=== PATIENT | female | born 1985 | race Caucasian/White ===

== ENCOUNTER 2020-07-19 07:25 | Day surgery (SDC) | payer BC, SELFPAY ==
--- NOTE | 2020-07-18 10:57 | HP.PCM_ITS ---
- Problem List (1) Menorrhagia Status: Acute (2) PCB (post coital bleeding) Status: Acute (3) Uterine polyp Status: Acute History and Physical Date of Admission: 07/19/20 DATE OF SERVICE: July 16, 2020 ? PROBLEM:??Post coital bleeding, menorrhagia ? DIAGNOSIS:?Post coital bleeding, menorrhagia ? SUBJECTIVE:?Pt is here for a pre op exam for hysteroscopy polypectomy. She has complaints of?pelvic pain for a few months. Worse over last month. She describes the pain as at times severe. Other times it feels like cramping. No fevers, chills, N/V, change in appetite, urinary symptoms, change in BM's, vaginal discharge, STD concerns. She had a small likely hemorrhagic cyst on a recent ultrasound.? ? PAST SURGICAL HISTORY:? PAST SURGICAL HISTORY PAST SURGICAL HISTORY Procedure Laterality Date ? NONE ? ? ? PAST MEDICAL HISTORY:? PAST MEDICAL HISTORY PAST MEDICAL HISTORY Diagnosis Date ? Anemia ? ? Septate uterus ? ? SOCIAL HISTORY:? SOCIAL HISTORY Social History ? Tobacco Use ? Smoking status: Never Smoker ? Smokeless tobacco: Never Used Substance Use Topics ? Alcohol use: Yes ? ? Comment: occasional ? Drug use: Never ? [employer] HISTORY: Pelvic US: Indication Abnormal uterine bleeding Impression Normal appearing retroverted uterus that measures 90 mm x 60 mm x 71 mm. Two Small ?fibroids, largest measures 2cm in greatest dimension- both are intramural. The central endometrial complex measures 11.6 mm in combined thickness. An endometrial polyp was seen at the fundal aspect with feeding vessels present. Right ovary with small complex ovarian cyst measuring 2.2cm in greatest dimension- ?no internal vascular flow, no solid components. Left ovary not seen. No adnexal masses were observed. There is moderate free fluid visualized in the peritoneal cavity. Recommendations consider hysteroscopic evaluation and removal of endometrial polyp ? ? ALLERGIES ALLERGIES No Known Allergies ? Current Outpatient Medications on File Prior to Visit Medication Sig ? MULTIVITAMIN ORAL Take by mouth. No current facility-administered medications on file prior to visit. ? OBJECTIVE: ? VITALS:? BP 106/70 ? Pulse 90 ? Resp 16 ? Ht 6' 1 (1.854 m) ? Wt (!) 323 lb 6.4 oz (146.7 kg) ? LMP 07/02/2020 ? BMI 42.67 kg/m? ? HEENT: ?Normocephalic, atraumatic, Mucus membranes moist without lesions. ? NECK: ???Soft and Supple. ?No adenopathy , thyromegaly or bruits. ? SKIN: No lesions. ? CHEST: Clear to auscultation. ?No wheezes or rales. ?Good air exchange. ? HEART: Regular rate and rhythm ?No S3 or S4. ?No gallops or rubs. ? BACK: Nontender with no CVA tenderness. ? ABDOMEN: Soft, non-tender, non-distended, no masses, no hepatosplenomegaly. ? LOWER EXTREMITIES: There was no pitting edema, no palpable cords and no skin changes. ? ? ? ASSESSMENT:?Menorrhagia, post coital bleeding, polyp on ultrasound ? PLAN:?Discussed hysteroscopy, polypectomy, possible D&C. Discussed that there may not be a polyp present at time of surgery. Discussed option for progesterone IUD for menorrhagia. Reviewed that the IUD could be placed at the time of surgery, but given her pelvic pain and cysts unsure if she would like to proceed. At this time she does not desire an IUD but will consider. Discussed that the polypectomy may not improve her bleeding.?The rationale for the proposed surgery was discussed in addition to risks, benefits, and alternatives. ?General pre- and post-operative care was reviewed. ?Questions were answered. ?After discussion, the patient indicated a desire to proceed with the planned surgery. ? The patient today also reports severe, worsening pelvic pain. Reviewed reasons to go to the ER. She just recently had a pelvic US - discussed likely small hemorrhagic cyst present. Discussed pain unlikely to be from small fibroids or polyp. Will get repeat pelvic US this week prior to proceeding with surgery for surgical planning given her worsening pain. ? The patient also brings with her today paperwork for time off from work. She says she has not been going to work because of the pelvic pain and fatigue. Discussed with her no medical indication to be off of work at this time, but will discuss with provider who she saw her last. Discussed time off with surgery. ? Karena Tubbs,?DO
[2020-07-19] VITALS (7 sets, daily range): BP systolic 119–137; BP diastolic 67–100; PULSE 73–98; RESP 16–18; TEMP 36.3–36.8; O2SAT 98–100; BMI 42.5
[2020-07-19 08:01] LABS: Internal QC Validated? YES +Cl - CLEAR BKGD; Pregnancy, Urine Negative Negative
[2020-07-19] MEDS: Lactated Ringers 1,000 ML 100 ML IV (08:09)
--- NOTE | 2020-07-19 09:00 | EMB_PTH ---
PATIENT: CORINNE ROJAS LOC: [facility] [place] U#:[id number] AGE/SX: 35/F ROOM: RE07/19/[address]: Dr. Karena Tubbs DO : 1985 BED: DIS: 07/19/2020 SPEC #: [id number] RECD: 07/19/20 10:56 STATUS: RADHA MARTIN #: [id number] MONALISA: 07/19/20 09:[address]: Karena Tubbs DEPT: SURGICAL PATHOLOGY RECD BY: Erin Agustin ENTERED: 07/19/20 13:02 SP TYPE: ENDOM BX/C DOMINGUEZ DR: Dr. Mike Ralph MD Tissues: Endometrium, NOS Procedures: Surgery Specimen Level IV HEADER OPERATION: Hysteroscopy, polypectomy, Symphion PRE-OP DIAGNOSIS: Dysfunctional uterine bleeding, polyp TISSUE SUBMITTED: Endometrial curettings and polyp MICROSCOPIC DIAGNOSIS Endometrial curetting and polyp: Polypoid fragments of transitional endometrium with mild disorder. Fragments of benign endocervical polyp. AM:lilli 07/20/2020 MICROSCOPIC DESCRIPTION Slides are reviewed. GROSS DESCRIPTION Received in fixative is one container labeled with the patient's name and designated endometrial curettings and polyp. The specimen consists of multiple irregular fragments of light to dark yeh soft tissue that in aggregate measure 5 x 3 x 0.2 cm. The specimen is totally submitted in two cassettes. / AM:lilli 07/19/20 TC:5 CPT: 98326
[2020-07-19] MEDS: Lidocaine 1% (20 ml mdv) 20 ML Vial (09:13)
--- NOTE | 2020-07-19 09:35 | PCM.DC.D&C ---
Discharge Diet: No Restrictions Discharge Activity: May Drive - 24 hours after surgery, May Shower May resume sexual activity in: 1 week Weight Bearing Status: Full weight bearing Lifting Restrictions: No restrictions Call your doctor if you observe: Fever of 101 or Higher, Inability to urinate, Inability to have a bowel movement, Using more than one pad per hour, Shortness of breath, Dizziness, Fainting spells, Swelling in the ankles, Chest pain, Increased palpitations (irregular heartbeat), Calf discomfort, Uncontrolled pain Allergies/Adverse Reactions: Allergies No Known Allergies Allergy (Verified 07/19/20 07:45) Medications to take at Discharge NK 07/12/20 Orders to be completed after discharge: ,Urine Time Frame: 07/19/20, Facility: [facility], Location: Laboratory Primary Care Physician: Mike Ralph MD [Primary Care Provider] - Test Results: Test results from this visit will be discussed in further detail at your follow-up appointment, if applicable. Please Follow Up With: Karena Tubbs DO When: 1-2 weeks
--- NOTE | 2020-07-19 09:36 | OP.PCM_ITS ---
Problem List (1) Menorrhagia Status: Acute (2) PCB (post coital bleeding) Status: Acute (3) Uterine polyp Status: Acute Report of Operation Date of Procedure: 07/19/20 Pre-Operative Diagnosis: DUB, post coital bleeding, uterine polyp Post-Operative Diagnosis: As above Surgery/Procedure Performed:: Hysteroscopy, polypectomy, D&C Description of Surgical Findings:: Multiple polyps noted within the uterine cavity. 4 polyps were noted within the cavity. Once the polyps were removed the uterine cavity was normal-appearing. Bilateral tubal ostia were visualized. barrel washer: None Type of Anesthesia:: Local, MAC Special Medications: None Specimen's removed: Polyps and endometrial curettings Drains: None Estimated Blood Loss (mL): < 50 cc Fluids Replaced: 750 cc fluid deficit Description of Procedure: Patient was taken to the operating room where MAC anesthesia was found to be adequate. She was prepped and draped in the dorsal lithotomy position using yellowfin stirrups. A weighted speculum was placed in the vagina to expose the cervix. Local was used to perform a paracervical block. A single-tooth tenaculum was placed on the anterior lip of the cervix. The uterus sounded to 10 cm. The cervix was serially dilated to accommodate the Symphion hysteroscope. Normal saline as distention media was used to distend the uterine cavity. Four uterine polyps were noted, and polyps were resected using the Symphion resection device. Once the polyps were resected and removed, the uterine cavity was otherwise normal-appearing. Bilateral tubal ostia were visualized. The hysteroscope was slowly removed through the cervical canal and the cervix was noted to be normal-appearing. The hysteroscope was removed. Sharp curettage was performed for endometrial curettings. The polyps and endometrial curettings were sent to pathology for review. All instruments were removed from the vagina. Bleeding was hemostatic. Vaginal sweep was performed. Instrument and sponge counts were correct. The patient was taken to recovery in stable condition. Grafts/Implants Used: None - Complications None - Admit VTE Documentation VTE Present on Admission: No VTE Mechan Device Prophylaxis: SCD's VTE Pharm Prophylaxis ordered?: No
== END 2020-07-19 10:37 | disposition home or self-care (01) ==
LOC: SDC 07:26 → AC 07:26
PROVIDERS: PCP Family Medicine; Referring Provider Obstetrics & Gynecology; Visit Provider Obstetrics & Gynecology
PROC: 0UB98ZZ Excision of Uterus, Via Natural or Artificial Opening Endoscopic (ICD-10-PCS; CPT 58558; principal; 2020-07-19 08:45)
DX: N84.1 Polyp of cervix uteri (principal); N93.8 Other specified abnormal uterine and vaginal bleeding; Z20.828 Contact with and (suspected) exposure to other viral communicable diseases; D25.1 Intramural leiomyoma of uterus; N85.4 Malposition of uterus; N83.201 Unspecified ovarian cyst, right side
CPT/HCPCS: 58558; 81025; 87426; 88305; C9803; J7120; J2405

== ENCOUNTER → 2020-11-08 16:48 | Outpatient (CLI) | payer OTHER, SELFPAY ==
[2020-07-19 07:47] VITALS: BMI 42.5
[2020-11-08 18:06] LABS: Anion Gap 6 (5-15); BUN 16 mg/dL (7-18); BUN/Creat Ratio 22.3 RATIO (10-20); Calcium,Total 9.4 mg/dL (8.5-10.1); Chloride 105 mmol/L (98-107); Creatinine, Serum 0.72 mg/dL (0.55-1.02); EST Glomerular Filtration Rate 98 mL/min (>60); Est Glom Filt Rate - Afr Amer 119 mL/min (>60); Follicle Stimulating Hormone 4.9 mIU/mL; Glucose 92 mg/dL (74-106); Luteinizing Hormone 6.5 mIU/mL; Potassium 4.2 mmol/L (3.5-5.1); Sodium Level 137 mmol/L (136-145); Thyroid Stim Hormone (TSH) 1.19 uIU/mL (0.358-3.74)
[2020-11-16 08:30] LABS: Estrogen, Total, Serum 101 pg/mL (.)
== END ==
PROVIDERS: PCP Family Medicine; Referring Provider Family Medicine; Visit Provider Family Medicine
DX: N94.6 Dysmenorrhea, unspecified (principal)
CPT/HCPCS: 36415; 80048; 82672; 83001; 83002; 84403; 84443

== ENCOUNTER 2023-12-18 16:10 | Emergency (ER) | payer OTHER, SELFPAY ==
[2023-12-18 16:11] VITALS: BP 175/108; PULSE 79; RESP 18; TEMP 36.4; O2SAT 99; BMI 44.4
--- NOTE | 2023-12-18 16:52 | US_ITS ---
STUDY: ULTRASOUND TRANSVAGINAL CLINICAL: Female, 38 years old. Vaginal bleeding TECHNIQUE: Transvaginal COMPARISON: None. FINDINGS: Normal uterine size measuring 9.1 x 6.9 x 4.9 cm in maximal craniocaudal dimension. There are fibroid measuring 2.3 x 2.9 x 2.3 cm, 2.3 x 2.3 x 2.3 cm and 2.7 x 2.3 x 2.3 cm Normal endometrial thickness measuring 8.3 mm. There are no endometrial masses, and there is no fluid in the endometrial cavity. Normal uterine cervix. Normal right ovary, measuring 3.8 x 2.2 x 1.7 cm. There are multiple follicles without a dominant cyst. Normal left ovary is not visualized. There is no adnexal mass There is no free fluid in the pelvis. US/Transvaginal Non- IMPRESSION: Multiple intrauterine fibroids. Electronically Signed: Obdulio Hall MD at 19:23 EDT ,
--- NOTE | 2023-12-18 17:24 | EDS_ITS ---
HPI <KENY Tesfaye - Last Filed: 12/18/23 20:33> HPI - Female History of Present Illness Chief Complaint: Vag Bleeding Narrative Narrative: Patient a 38-year-old female with no significant medical history who presents to the emergency department by referral from the [facility] [place] office. Per the practitioner there, the patient has been having significant bleeding for the last 6 months. Talking with the patient, this has been a lot longer however more severe over the last 6 months. Patient has 2 menses per month, with heavy bleeding and clots expelled. Patient denies ever being . Patient denies any specific pain. She states that over the last couple days has been more dizzy, lightheaded when she stands up. Patient dates she feels excessively tired. PFSH <KENY Tesfaye - Last Filed: 12/18/23 20:33> PFSH Home Medications ?Medication ?Instructions ?Recorded ?Last Taken ?Type acetaminophen 325 mg tablet 325 mg PO ONCE PRN 12/18/23 Unknown History (Tylenol) ibuprofen 200 mg tablet 200 mg PO Q6H PRN 12/18/23 Unknown History Allergy/AdvReac Type Severity Reaction Status Date / Time No Known Allergies Allergy Verified 12/18/23 16:12 Family History Mother Neuropathy Fibromyalgia Hypoglycemia Brother Blood clot in leg Other Heart disease Surgical History H/O cervical polypectomy Social History adopted: No household members: spouse current occupational status: employed current occupation: [employer] pets and animals: Yes history of recent travel: No sexually active: Yes Smoking Status: Never smoker alcohol intake: current details: holidays substance use type: does not use caffeine: Yes seatbelt use: always do you feel safe at home: Yes additional social history: Spouse - Dustin works at a [employer] company ROS <KENY Tesfaye - Last Filed: 12/18/23 20:33> ROS ED ROS Narrative Constitutional: Negative for fever, chills, weight loss, weakness Eyes: Negative for vision loss, vision change, double vision ENT: Negative for any sore throat, ear pain, congestion Cardiovascular: Negative for any chest pain, tightness. Positive palpitations Respiratory: Negative for any cough, sputum production, hemoptysis, dyspnea, dyspnea on exertion, orthopnea Gastrointestinal: Negative for any abdominal pain, nausea, vomiting, diarrhea, constipation, blood in stool, blood in vomit : Negative for any urinary frequency, dysuria, retention, blood in urine Muscle skeletal: Negative for any neck pain, back pain Neurological: Negative for any headache. Positive for near syncope, feeling of dizziness which he describes as lightheadedness Psychiatric: Negative for any depression, anxiety, stress, suicidal ideation, homicidal ideation Hematologic: Negative for any excessive bruising, easy bleeding EXAM <Mike Gilliam NP-C - Last Filed: 12/18/23 20:33> Physical Exam Narrative Exam Narrative: Vital signs reviewed. Patient appears slightly flushed, no evidence of any significant paleness. HEET: Head normocephalic atraumatic, TMs clear bilaterally. Posterior pharynx is clear, moist mucous membranes. Nares clear bilaterally. Negative for any pale conjunctiva Neck: Supple with no lymphadenopathy or tenderness. No signs of meningismus. Cardiac: Regular rate and rhythm no murmurs gallops or rubs, equal peripheral pulses bilaterally. Respiratory: Lungs clear to auscultation bilaterally. No chest tenderness. Abdomen: Soft, nontender, nondistended. No abdominal bruit or pulsatile masses. No hepatosplenomegaly Extremities: No peripheral edema, no signs of gross trauma or deformity. Active full range of motion of all extremities. Neuro: Cranial nerves II through XII intact, no focal neurological deficits. Skin: Clean dry and intact with no rash, purpura, petechiae, vesicles or pustules. Backs/flank: No CVA tenderness, no midline spinal tenderness, no deformity. Psych: Normal mood and affect. No SI, HI or acute psychosis. Const Vital Signs: 12/18/23 16:11 12/18/23 18:17 12/18/23 20:00 Temperature 97.6 F L Temperature Source Temporal Pulse Rate 79 84 Pulse Rate [Lying] 82 Pulse Rate [Sitting (for 1 minute prior to obtaining)] 85 Pulse Rate [Standing (for 1 minute prior to obtaining)] 83 Respiratory Rate 18 17 Blood Pressure 175/108 H 159/100 H Blood Pressure [Lying] 164/112 H Blood Pressure [Sitting (for 1 minute prior to obtaining)] 183/112 H Blood Pressure [Standing (for 1 minute prior to obtaining)] 206/109 H Blood Pressure Mean 130 119 Blood Pressure Mean [Lying] 129 Blood Pressure Mean [Sitting (for 1 minute prior to obtaining)] 135 Blood Pressure Mean [Standing (for 1 minute prior to obtaining)] 141 Pulse Ox 99 98 Oxygen Delivery Method Room Air Room Air Positive well nourished, well developed and obese General Appearance ED: well developed Nutritional Appearance: obese <Dr. Bryan Phan DO - Last Filed: 12/18/23 20:30> Physical Exam Const Vital Signs: 12/18/23 16:11 12/18/23 18:17 12/18/23 20:00 Temperature 97.6 F L Temperature Source Temporal Pulse Rate 79 84 Pulse Rate [Lying] 82 Pulse Rate [Sitting (for 1 minute prior to obtaining)] 85 Pulse Rate [Standing (for 1 minute prior to obtaining)] 83 Respiratory Rate 18 17 Blood Pressure 175/108 H 159/100 H Blood Pressure [Lying] 164/112 H Blood Pressure [Sitting (for 1 minute prior to obtaining)] 183/112 H Blood Pressure [Standing (for 1 minute prior to obtaining)] 206/109 H Blood Pressure Mean 130 119 Blood Pressure Mean [Lying] 129 Blood Pressure Mean [Sitting (for 1 minute prior to obtaining)] 135 Blood Pressure Mean [Standing (for 1 minute prior to obtaining)] 141 Pulse Ox 99 98 Oxygen Delivery Method Room Air Room Air MDM <KENY Tesfaye - Last Filed: 12/18/23 20:33> [facility] Lab Data Labs: Laboratory Results - last 24 hr 12/18/23 12/18/23 17:40 20:00 WBC 7.8 RBC 4.18 L Hgb 10.2 L Hct 33.1 L MCV 79.2 L MCH 24.4 L MCHC 30.8 L RDW Std Deviation 42.2 RDW Coeff of Duke 14.7 H Plt Count 360 MPV 9.3 Immature Gran % (Auto) 0.500 Neut % (Auto) 61.6 Lymph % (Auto) 28.2 Archer % (Auto) 6.2 Eos % (Auto) 3.0 Baso % (Auto) 0.5 Absolute Neuts (auto) 4.8 Absolute Lymphs (auto) 2.20 Nucleated RBC % 0 Sodium 138 Potassium 4.1 Chloride 106 Carbon Dioxide 26.0 Anion Gap 6 BUN 15 Creatinine 0.83 Estim Creat Clear Calc 154.19 Est GFR (MDRD) Af Amer 98 Est GFR (MDRD) Non-Af 81 BUN/Creatinine Ratio 18.0 Glucose 96 Calcium 9.0 Serum , Qual NEGATIVE Urine Color Yellow Urine Clarity Sl. Cloudy Urine pH 6.0 Ur Specific [place] 1.015 Urine Protein Negative Urine Glucose (UA) Normal Urine Ketones Negative Urine Occult Blood 250 H Urine Nitrite Negative Urine Bilirubin Negative Urine Urobilinogen Normal Ur Leukocyte Esterase 25 H Urine RBC 5-10 SEEN Urine WBC 0-5 SEEN Ur Squamous Epith Cells 0-5 SEEN Urine Bacteria 1+ Urine Mucus 1+ Radiography Diagnostic Testing: Clinical Impression(s) from Imaging Studies Transvaginal US 12/18/23 16:52 IMPRESSION: Multiple intrauterine fibroids. Electronically Signed: Obdulio Hall MD at 19:23 EDT , Treatment and Re-Evaluation Narrative: Differential diagnosis includes however is not limited to: Anemia, dysmenorrhea, endometriosis Patient appears to be in no obvious respiratory distress, patient's vital signs are stable. Patient presents to the emergency department for chronic vaginal bleeding, worsening over the last several months. Patient was having some near syncopal episodes, feeling of lightheadedness today and the [facility] office wanted her to have further workup. Patient received laboratory values, CBC, BMP, urinalysis, serum . Patient also received pelvic ultrasound per her request. Patient received IV fluids. Orthostatic vital signs were completed. Patient CBC shows slight anemia with a hemoglobin of 10.2, patient's chemistries were unremarkable, patient is not . Patient's pelvic transvaginal ultrasound shows multiple intrauterine fibroids, normal endometrial thickness. Negative for any mass, surgical emergency. I spoke with the patient, she does feel better after IV fluids. You believe the patient can follow-up outpatient. Patient is happy with the plan of care, she will follow-up outpatient. Urinalysis negative for any acute infection. <Dr. Bryan Phan, DO - Last Filed: 06/28/24 20:30> [facility] Narrative Medical decision making narrative: I have personally performed a face to face assessment of the patient and have reviewed the ESTELLA Note. I performed a substantive portion of the visit including all aspects of the following. My martinez findings include: History: Patient presents with fatigue and general weakness. Patient states she has been having some heavy menstrual bleeding over the last 3 days. Patient states that it is gradually getting worse. Patient states she is passing clots. Patient states she is going through a pad approximately every 2 hours. Patient denies any cramping. Patient admits to some low back pain. Patient denies any fevers or chills. Patient denies any nausea or vomiting. Exam: Vital signs are stable except for an elevated blood pressure 175/108. Patient is afebrile. Patient is in no acute distress. Oral mucosa is pink and moist. Neck is supple. Trachea is midline. There is no JVD. Heart was regular rate and rhythm. Lungs are clear and equal bilaterally. Abdomen is soft. Bowel sounds are normal. There is mild left lower quadrant tenderness. There is no rebound or guarding noted. Cranial nerves II through XII are intact. There are no focal motor or sensory deficits noted. Medical Decision Making: Differential diagnosis includes dysmenorrhea, abnormal vaginal bleeding, ovarian cyst, ectopic , and endometriosis. CBC will be obtained to assess for anemia. Basic metabolic profile will be obtained to assess for electrolyte abnormality and renal function. Serum hCG will be obtained to assess for . Urinalysis will be obtained to assess for urinary tract infection and hematuria. Pelvic ultrasound will be obtained to assess for ovarian cyst and ovarian torsion. Patient was given IV fluids. Orthostatic vital signs were obtained. CBC was reviewed. There is a mild anemia with a hemoglobin of 10.2 and hematocrit of 33.1. There are no prior lab values for comparison. Basic metabolic profile was reviewed and was within normal limits. Serum hCG was reviewed and was negative. Pelvic ultrasound was obtained. There are multiple intrauterine fib roids. There is no acute abnormality noted. This was interpreted by the radiologist was also independently reviewed by myself. Urinalysis was reviewed. There is no evidence of urinary tract infection. Patient was advised of her findings. Patient was instructed to follow-up with her [facility] in 5 to 7 days. Patient was instructed to return if worse in any way. Patient understood and was agreeable with the plan. All questions were answered. Lab Data Labs: Laboratory Results - last 24 hr 12/18/23 12/18/23 17:40 20:00 WBC 7.8 RBC 4.18 L Hgb 10.2 L Hct 33.1 L MCV 79.2 L MCH 24.4 L MCHC 30.8 L RDW Std Deviation 42.2 RDW Coeff of Duke 14.7 H Plt Count 360 MPV 9.3 Immature Gran % (Auto) 0.500 Neut % (Auto) 61.6 Lymph % (Auto) 28.2 Archer % (Auto) 6.2 Eos % (Auto) 3.0 Baso % (Auto) 0.5 Absolute Neuts (auto) 4.8 Absolute Lymphs (auto) 2.20 Nucleated RBC % 0 Sodium 138 Potassium 4.1 Chloride 106 Carbon Dioxide 26.0 Anion Gap 6 BUN 15 Creatinine 0.83 Estim Creat Clear Calc 154.19 Est GFR (MDRD) Af Amer 98 Est GFR (MDRD) Non-Af 81 BUN/Creatinine Ratio 18.0 Glucose 96 Calcium 9.0 Serum , Qual NEGATIVE Urine Color Yellow Urine Clarity Sl. Cloudy Urine pH 6.0 Ur Specific [place] 1.015 Urine Protein Negative Urine Glucose (UA) Normal Urine Ketones Negative Urine Occult Blood 250 H Urine Nitrite Negative Urine Bilirubin Negative Urine Urobilinogen Normal Ur Leukocyte Esterase 25 H Urine RBC 5-10 SEEN Urine WBC 0-5 SEEN Ur Squamous Epith Cells 0-5 SEEN Urine Bacteria 1+ Urine Mucus 1+ Radiography Diagnostic Testing: Clinical Impression(s) from Imaging Studies Transvaginal US 12/18/23 16:52 IMPRESSION: Multiple intrauterine fibroids. Electronically Signed: Obdulio Hall MD at 19:23 EDT Reading Location ID and State: [address] [place] [address] Tel , Service support , Discharge Plan Triage Chief Complaint: Vag Bleeding ED Midlevel Provider: Mike Gilliam ED Provider: Bryan Phan Dx/Rx/DC Orders Clinical Impression: Menorrhagia, Fibroid, uterine Instructions: ED Heavy Menstrual Bleeding, ED Uterine Fibroids Prescriptions: No Action acetaminophen [Tylenol] 325 mg tablet 325 mg PO ONCE PRN ibuprofen 200 mg tablet 200 mg PO Q6H PRN Primary Care Provider: Mike Ralph Referrals: Mike Ralph MD [Primary Care Provider] - Activity Restrictions/Additional Instructions: Continue to follow-up with your [facility]. Your hemoglobin was 10.2 today. Normal is 12. Please return for any worsening symptoms. Print Language: Singaporean Disposition Disposition: Home, Self Care
[2023-12-18] MEDS: 0.9% Normal Saline (1000mL) 1,000 ML 999 ML IV (17:43)
[2023-12-18 17:47] LABS: Absolute Neutrophil Count 4.8 X10^3/uL (2.0-7.7); Basophil# 0.04 X10^3/uL; Basophil% 0.5 % (0-1); Eosinophil# 0.23 X10^3/uL; Hematocrit 33.1 % (37-47); Hemoglobin 10.2 g/dL (12.0-15.0); Lymphocyte % 28.2 % (19-41); Mean Corp Hgb Conc 30.8 g/dL (32-36); Mean Corpuscular Hgb 24.4 pg (27.0-32.0); Mean Corpuscular Volume 79.2 fL (81-99); Mean Platelet Vol. 9.3 fl (6.2-12.0); Monocyte# 0.48 X10^3/uL; Monocyte% 6.2 % (0-10); NRBC Flagged by Analyzer 0 % (0-5); Neutrophil % 61.6 % (47-70); Platelet Count 360 K/mm3 (150-450); RBC Distribution Width CV 14.7 % (11.6-14.6); RBC Distribution Width SD 42.2 fl (35.1-43.9); Red Blood Count 4.18 M/mm3 (4.2-5.4); White Blood Count 7.8 K/mm3 (4.4-11.0)
[2023-12-18 17:48] LABS: POSITIVE COUNT NO; POSITIVE DIFFERENTIAL NO; POSITIVE MORPHOLOGY NO
[2023-12-18 17:59] LABS: Anion Gap 6 (5-15); BUN 15 mg/dL (7-18); Chloride 106 mmol/L (98-107); Creatinine, Serum 0.83 mg/dL (0.55-1.02); EST Glomerular Filtration Rate 81 mL/min (>60); Est Glom Filt Rate - Afr Amer 98 mL/min (>60); Estimated Creatinine Clearance 154.19 ml/min; Glucose 96 mg/dL (74-106); Potassium 4.1 mmol/L (3.5-5.1); Sodium Level 138 mmol/L (136-145)
[2023-12-18 18:01] LABS: Internal QC Validated? YES +Cl - CLEAR BKGD; Pregnancy, Serum, hCG Quali. NEGATIVE Negative; Record Kit Lot#, Serum Preg. 772476
[2023-12-18 18:17] VITALS: BP 164/112; BP 183/112; BP 206/109; PULSE 82; PULSE 83; PULSE 85
[2023-12-18 20:00] VITALS: BP 159/100; PULSE 84; RESP 17; O2SAT 98
[2023-12-18 20:11] LABS: Color, Urine Yellow (Yellow); Glucose, Dipstick Normal (Normal); Ketone-Dipstick Negative (Negative); Leukocyte Esterase-Dipstick 25 /ul (Negative); Nitrite-Dipstick Negative (Negative); Occult Blood-Urine 250 /ul (Negative); Protein-Dipstick Negative (Negative); Specific Gravity, Urine 1.015 (1.002-1.030); Urine Bilirubin Dipstick Negative (Negative); Urine Clarity Sl. Cloudy (Clear); Urine Urobilinogen Normal (Normal)
[2023-12-18 20:26] LABS: Red Blood Cells-Urine 5-10 SEEN /hpf (0-5); Squamous Epithelial Cells - UA 0-5 SEEN /hpf (5-10); White Blood Cells 0-5 SEEN /hpf (0-5)
[2023-12-18 20:27] LABS: Bacteria 1+ /hpf (None Seen); Mucous, Urine 1+ /hpf (<or=2+)
[2023-12-18 20:44] VITALS: BP 142/95; PULSE 80; RESP 18; TEMP 36.2; O2SAT 100
== END 2023-12-18 20:45 | disposition home or self-care (01) ==
PROVIDERS: Nurse Practitioner; Emergency Provider Emergency Medicine; PCP Family Medicine; Visit Provider Emergency Medicine
DX: N92.0 Excessive and frequent menstruation with regular cycle (principal); D25.9 Leiomyoma of uterus, unspecified; E66.9 Obesity, unspecified
CPT/HCPCS: 76830; 80048; 81001; 84703; 85025; 96360; 96361; 99284; J7030; A4216

== ENCOUNTER → 2024-02-18 | Outpatient (CLI) | payer OTHER, SELFPAY ==
--- NOTE | 2024-02-18 11:01 | MRI_ITS ---
EXAM: MR PELVIS WITHOUT AND WITH INTRAVENOUS CONTRAST CLINICAL INDICATION: fibroids, desiring IR ablation TECHNIQUE: Multiplanar and multisequence MR images of the pelvis without and with intravenous contrast. CONTRAST: IV 29 cc Clariscan COMPARISON: No relevant prior studies available. FINDINGS: INTRAPERITONEAL SPACE: Normal. No ascites or other fluid collection. BLADDER: Normal. OVARIES: Left ovary measures 4.4 x 2.4 cm and contains multiple peripheral follicles largest one measuring 6 mm in diameter. 3.2 x 2.0 cm right ovarian cyst noted containing a dominant 14 mm follicular cyst as well as smaller peripheral follicles. UTERUS/CERVIX: There are multiple uterine fibroids. 2.6 cm posterior fundal fibroid noted as well as a 2.9 cm right-sided subserosal fibroid and 2.5 cm left-sided myometrial fibroid. The subserosal right-sided fibroid contains central cystic area with increased T1 signal intensity indicating hemorrhage or proteinaceous material. Retroflexed uterus measures 12 cm in length, 6 cm in AP dimension and 7.7 cm in lateral dimension. Endometrial thickness is 14 mm. Endometrial cavity appears partially septated. BONES/JOINTS: Normal. SOFT TISSUES: Normal. No pelvic wall hernia. LYMPH NODES: Normal. No enlarged lymph nodes. MRI/Pelvis W/WO Contrast IMPRESSION: 1. Retroflexed fibroid uterus as described. 2. Question PCOS (polycystic ovarian syndrome). Electronically Signed: Ross Wolff MD at 8:27 EDT ,
== END | disposition home or self-care (01) ==
PROVIDERS: PCP Family Medicine; Referring Provider Registered Nurse; Visit Provider Registered Nurse
DX: D21.9 Benign neoplasm of connective and other soft tissue, unspecified (principal); N92.0 Excessive and frequent menstruation with regular cycle
CPT/HCPCS: 72197; A9575

== ENCOUNTER → 2024-03-24 | Outpatient (CLI) | payer OTHER, SELFPAY ==
[2024-03-31 14:10] LABS: HPV APTIMA, High Risk Negative (Negative)
== END | disposition home or self-care (01) ==
PROVIDERS: PCP Family Medicine; Referring Provider Advanced Practice Midwife; Visit Provider Advanced Practice Midwife
DX: Z12.4 Encounter for screening for malignant neoplasm of cervix (principal)
CPT/HCPCS: 87624; 88175; G0145